=== PATIENT | male | born 1990 | race Caucasian/White ===

== ENCOUNTER 2024-09-09 14:17 | Outpatient (AMB) | payer OTHER, SELFPAY ==
--- NOTE | 2024-09-09 14:20 | MHC.OFFVIS ---
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 Zaragoza, 07/26/24), cervical degenerative disc disease, chronic numbness of both lower extremities and left upper extremity, history of left shoulder pain status post reconstructive surgery about 10 years, anxiety and depression, ADHD, history of alcohol abuse (quit 2018), former tobacco use, presents today for initial evaluation of chronic pain syndrome including neck pain, left upper extremity pain, lower back pain, left leg pain with bilateral numbness and parasthesias in both legs. He also reports widespread body pain with multiple tender points of the upper and lower extremities consistent with fibromyalgia. Denies any recent trauma, injury, or falls. Anterior neck incision is healing well. Patient last seen Dr. Zaragoza for postoperative visit last Monday with no further follow-up. He has not been cleared to return to his work as of yet and was recommended no lifting, no bending or twisting. 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 He sees Psychologist for anxiety and depression and recently underwent business separation with his brother which caused him significant emotional trauma lead to an alcohol abuse. Reports last alcohol and tobacco consumption in 2019. Patient uses recreational marijuana for pain and sleep which he obtains a local dispensary stores. Patient reports recent EMG study at [facility] this month, but not lower extremities. Patient undergone last neck injection prior to cervical surgery at [facility] with no pain relief. Per referral notes, Dr. Zaragoza and Dr. Adame are struggling to explain patient's symptoms based on diagnostic studies. Patient also has Neurology evaluation. Currently he takes gabapentin 600 mg BID and 900 mg at bedtime, duloxetine 40 mg daily, OxyContin 10 mg b.i.d., Percocet 5/325 mg Q4H prn pain tizanidine 4 mg t.i.d. p.r.n. for chronic pain with mild analgesia. Patient admits opioid medication allows him to be more functional and less symptomatic but does not alleviate most of his pain. Pain affects his daily activities and functioning mood, sleep, mobility, social interactions and quality of life. Denies any fever or chills, abdominal or groin pain, bladder or bowel dysfunction or saddle anesthesia. Reports bilateral lower extremity weakness, uses cane with ambulation. Location: Low back, neck, left leg, left upper arm, BLE, hands Duration: Chronic pain >5 months Characteristics of symptom or complaint: Aching, shooting, stabbing, throbbing, numbness, squeezing, cramping, sore Aggravating or associated factors: Any movement, standing, sitting, changing positions, bending, lifting Relieving factors: Laying with head and legs elevated medications, heat therapy Treatment: Xtampza ER, Percocet, tizanidine prn, gabapentin, duloxetine; C6-C7 ACDF [facility] Medical History (Updated 09/09/24 @ 16:09 by CHAZ Guo) Low back pain Chronic pain syndrome Paresthesia of both lower extremities Former tobacco use Alcohol abuse Anxiety and depression ADHD DDD (degenerative disc disease), cervical Surgical History (Updated 09/09/24 @ 16:08 by CHAZ Guo) H/O shoulder surgery S/P cervical spinal fusion (~07/26/24) Social History (Updated 09/09/24 @ 14:30 by Kaylee Mondragon) Patient Tobacco Use Status: Former Tobacco user Substance Use Type: Marijuana Review of Systems Const All systems reviewed & are unremarkable except as noted in HPI and below Neuro Denies Sensory deficit (Neuro) Physical Exam Vital Signs: Last Vital Signs Pulse 144 H 09/09/24 14:26 BP 163/95 H 09/09/24 14:26 Pulse Ox 99 09/09/24 14:26 Oxygen Delivery Method Room Air 09/09/24 14:26 BMI result Body Mass Index 32.5 General: Appears afebrile. Alert and oriented. Mood and affect appropriate. Anxious. Follows and participates in conversation appropriately. Respiratory effort is unlabored. No cough. Able to transition from sit to stand unassisted. Ambulates with bilaterally normal heel strike and toe off. Neck Neck: Yes normal visual inspection, Yes no lymphadenopathy, Yes no meningeal signs, Yes supple, No anterior neck swelling, No torticollis, Yes no JVD and No prominent dorsocervical fat pad General: Yes no CVA tenderness Back/Spine/Pelvis Other: Multiple widespread TTPs bilaterally, including upper and lower extremities consistent with fibromyalgia. Back: no CVA tenderness Cervical Spine: cervical muscular tenderness, pain with cervical ROM, Cervical spine scars present (s/p ACDF 07/26/24 well healing incision), No Cervical spine tenderness and No step off deformity Thoracic/Lumbar Spine: thoracic and lumbar spine normal to inspection, No Thoracic/lumbar spine scar(s), Lasegue's sign negative, straight leg raise negative bilaterally, pain with thoraco-lumbar ROM, paraspinal muscle tenderness, thoraco-lumbar ROM limited, No thoracic spinal tenderness and No lumbar spinal tenderness Pelvis: buttock tenderness bilaterally Sacroiliac joints: bilaterally tender to palpation; not passive hyperextion of lower ext Neuro General: no meningeal signs, CN's II-XI intact bilaterally and deep tendon reflexes 2+ bilaterally Cognition (Neuro): normal cognition Gait exam (Neuro): Antalgic gait present and Assistive device used Motor exam (neuro): 5/5 motor strength present throughout (4/5 LUE), no tremor noted and Motor abnormalities not present Sensory Exam: No Sensory deficit (Neuro) Extrem General: Yes capillary refill normal, Yes no clubbing, cyanosis or edema and Yes no calf tenderness Results Reviewed Results Reviewed: XR SPINE LUMBAR 2 or 3 views 07/02/24 INDICATION: Lumbar radiculopathy. TECHNIQUE: Three views of the lumbar spine. COMPARISON: MRI lumbar spine 06/28/2024. FINDINGS: The alignment is anatomic. Vertebral body height is normal without compression deformity. Visualized disc spaces are unremarkable. IMPRESSION: No acute findings. MR SPINE LUMBAR without CONTRAST 06/28/24 [facility] INDICATION: Weakness in legs, left leg symptoms since injection into neck. Mid and lower back pain. TECHNIQUE: Unenhanced multiplanar, multisequence MR imaging of the lumbar spine. COMPARISON: XR SI joints 05/29/2024. FINDINGS: Normal lumbar alignment is demonstrated. Vertebral heights are well maintained. There is a hemangioma in T12. Bone marrow signal is otherwise within normal limits, and no suspicious osseous lesion is identified. Conus medullaris is unremarkable. Paraspinal soft tissues and visualized portions of the abdomen and pelvis are unremarkable. At T12-L1, there is a small broad-based is bulge. No central canal or neural foraminal stenosis is demonstrated. At L1-2 there is no significant disc herniation or protrusion. No central canal or neural foraminal stenosis is demonstrated. At L2-3 there is no significant disc herniation or protrusion. No central canal or neural foraminal stenosis is demonstrated. At L3-4 there is no significant disc herniation or protrusion. No central canal or neural foraminal stenosis is demonstrated. At L4-5 there is no significant disc herniation or protrusion. No central canal or neural foraminal stenosis is demonstrated. At L5-S1 there is no significant disc herniation or protrusion. No central canal or neural foraminal stenosis is demonstrated. IMPRESSION: Unremarkable lumbar spine MRI. XR SACRO ILIAC JOINTS >3 views 05/29/24 at [facility] INDICATION: Sacroiliitis. Left greater than right joint pain TECHNIQUE: Four views of the SI joints. COMPARISON: None Available. FINDINGS: The visualized SI joint space is bilaterally symmetrical. There is no evidence of lytic or sclerotic process. Bones demonstrate normal mineralization. IMPRESSION: No acute findings. Normal plain film appearance of the SI joints. XR SPINE CERVICAL 4 OR 5 VIEWS 05/15/24 [facility] INDICATION: Radiculopathy, cervical region. Nerve pain, left side of body, especially left arm and hand. Symptoms since early 03/2024. Evaluate for foraminal encroachment. Additional History: Thyroid problems. Former smoker (10+ packs per day). TECHNIQUE: Two bilateral oblique views of the cervical spine. COMPARISON: MRI Spine Cervical 05/11/2024. FINDINGS: The alignment is anatomic. There is no evidence of an acute fracture. Visualized disc spaces are unremarkable. Neural foramina are patent bilaterally. Prevertebral soft tissues are within normal limits. IMPRESSION: Neural foramina appear patent bilaterally. Cervical spine appears intact without evidence of acute fracture or subluxation. MR SPINE CERVICAL without CONTRAST 05/11/24 [facility] INDICATION: Nerve pain in left side of body. Worse in left shoulder, arm and hand. Ongoing since early March 2024. TECHNIQUE: Unenhanced multiplanar, multisequence MR imaging of the cervical spine. COMPARISON: None Available. FINDINGS: Normal cervical alignment is demonstrated. Vertebral heights are well maintained. Craniocervical junction is unremarkable. Mild degenerative changes in the mid to lower cervical spine present. Bone marrow signal is within normal limits, and no suspicious osseous lesion is identified. Prevertebral and paraspinal soft tissues are within normal limits. Visualized portions of the posterior fossa are unremarkable. Cervical cord demonstrates normal course, caliber, and signal characteristics. No epidural fluid collection or hematoma is identified. At C2-3 there is no significant disc herniation or protrusion. No central canal or neural foraminal stenosis is demonstrated. At C3-4 there is mild diffuse disc osteophyte and uncovertebral degenerative change causing moderate bilateral neural foraminal narrowing. There is central canal encroachment with impingement of the ventral cord. No cord signal change seen. At C4-5 there is mild diffuse disc osteophyte and uncovertebral degenerative change causing minimal central canal central encroachment. No cord impingement seen. There is moderate bilateral foraminal narrowing with impingement of the exiting nerve roots bilaterally. At C5-6 there is mild diffuse disc osteophyte and uncovertebral degenerative change causing minimal central canal central encroachment. No cord impingement seen. There is moderate bilateral foraminal narrowing with impingement of the exiting nerve roots bilaterally. At C6-7 there is broad based central disc herniation with left foraminal extension present. This results in mild to moderate central canal stenosis with impingement of the ventral cord. No cord signal change seen. AP central canal diameter 0.8 cm in size. Right neural foramina intact there is moderate left neural foraminal narrowing with impingement of the exiting nerve root. At C7-T1 there is no significant disc herniation or protrusion. No central canal or neural foraminal stenosis is demonstrated. IMPRESSION: Degenerative changes of the cervical spine with multilevel areas of mild to moderate central canal stenosis and moderate to advanced neural foraminal narrowing with associated exiting nerve root impingement. MR SHOULDER WITHOUT CONTRAST LEFT 04/25/24 [facility] INDICATION: Shoulder pain. Tendinitis. Bursitis. TECHNIQUE: Axial PD; sagittal T2; coronal PD, T2, T2 fat-sat. COMPARISON: None. FINDINGS: There is susceptibility artifact at the distal clavicle and there has been resection of the distal clavicle with marked attenuation of the distal clavicle. Assessment of the mid clavicle is limited on this examination. There is not significant bone marrow edema or fluid collection. The acromion is intact. No significant abnormality is identified within the subacromial/subdeltoid bursa. The muscles and tendons of the rotator cuff are intact without atrophy or tear. The long head of the biceps tendon is intact and descends normally within the bicipital groove. No labral tear is detected. Glenohumeral articular cartilage is preserved. No glenohumeral capsular abnormality. Normal visualized proximal humerus. Normal muscle signal is present. No soft tissue mass is identified. IMPRESSION: 1. Intact rotator cuff and glenohumeral articulation. 2. Susceptibility artifact at the distal clavicle with marked attenuation the distal clavicle which is presumably postsurgical. Assessment & Plan Assessment & Plan (1) Chronic pain syndrome: Code(s): G89.4 - Chronic pain syndrome Category: Medical (2) Paresthesia of both lower extremities: Code(s): R20.2 - Paresthesia of skin Category: Medical (3) S/P cervical spinal fusion: Onset Date: ~07/26/24 Comment: Dr. Zaragoza, C6-C7 ACDF Code(s): Z98.1 - Arthrodesis status Category: Surgical (4) Fibromyalgia: Code(s): M79.7 - Fibromyalgia Category: Medical (5) Opiate analgesic contract exists: Code(s): Z79.891 - director long term care (current) use of opiate analgesic Category: Medical (6) Low back pain: Code(s): M54.50 - Low back pain, unspecified Category: Medical Plan Patient's widespread body pain is consistent with fibromyalgia. He is recently s/p C6-C7 ACDF and is recovering well with current activity restrictions and out of work. Discussed management of fibromyalgia with patient. Is a noninflammatory, non-autoimmune central afferent processing disorder leading to a diffuse pain syndrome. Patient follows up regularly with a psychologist for anxiety, depression, and ADHD and is recommended to consider cognitive behavioral therapy for chronic pain syndrome and fibromyalgia. Patient would benefit from increased physical activity, either through formal physical therapy or by joining a gym, as well as daily physical activity in form of swimming, gentle stretching exercises, walking, cycling, and aerobic exercise which are the overall most effective treatments once he is cleared to return to work and exercise. Anni Hale., Ronnie Ward, Rachana Samano, Susana Hurtado, Maryjo Barba, & ?Anni Bond (2017). Effectiveness of Therapeutic Exercise in Fibromyalgia Syndrome: A Systematic Review and [place]-Analysis of Randomized Clinical Trials. [employer], 2017, [id number]. [email or web address] We will order neurodiagnostic studies of bilateral lower extremities to further evaluate paresthesias and numbness. Patient also has pending neurology evaluation. Discussed rotation of gabapentin to Lyrica (pregabalin). Patient will try pregabalin at the equivalent dose to his current use of gabapentin for 1 week while holding gabapentin at that time. If well tolerated, we will continue pregabalin and discontinue gabapentin. We also discussed interventional treatments including neuromodulation such as SCS and ITDD pain pump trials vs implants, peripheral nerve stimulation with Sprint PNS device, radiofrequency ablation and therapeutic versus diagnostic injections. Informational pamphlets provided to patient and his family today. All questions and concerns have been answered and patient agreed with the treatment plan. Follow-up for EMG results/medication review and sooner as needed. Orders: Orders NE nerve conduction velocity Today G89.4 - Chronic pain syndrome, R20.2 - Paresthesia of skin NE electromyogram (EMG) Today G89.4 - Chronic pain syndrome, R20.2 - Paresthesia of skin Medications: New pregabalin 200 mg PO BID 1 week 14 caps 0RF pain G89.4 - Chronic pain syndrome Coding Level of Care Code New Pt Level 4 (87503) Complex EM visit Add On G2211 Diagnoses Chronic pain syndrome G89.4 Paresthesia of both lower extremities R20.2 S/P cervical spinal fusion Z98.1 Fibromyalgia M79.7 Opiate analgesic contract exists Z79.891 Low back pain M54.50
[2024-09-09 14:26] VITALS: BP 163/95; PULSE 144; O2SAT 99; BMI 32.5
== END 2024-09-09 15:18 | disposition home or self-care (01) ==
LOC: HO.PMC 14:17
PROVIDERS: PCP Family Medicine; Referring Provider Family Medicine; Visit Provider Nurse Practitioner Family
DX: G89.4 Chronic pain syndrome (principal); R20.2 Paresthesia of skin; Z98.1 Arthrodesis status; M79.7 Fibromyalgia; Z79.891 Long term (current) use of opiate analgesic; M54.50 Low back pain, unspecified
CPT/HCPCS: 99204; G2211

== ENCOUNTER → 2024-09-09 14:17 | Outpatient (BNVA) | payer OTHER, SELFPAY | PROVIDERS: PCP Family Medicine; Referring Provider Family Medicine; Visit Provider Nurse Practitioner Family ==

== ENCOUNTER 2024-11-01 10:23 | Outpatient (AMB) | payer OTHER, SELFPAY ==
--- NOTE | 2024-11-01 10:25 | A.OFFVIS_ITS ---
Vital Signs 3 11/01/24 10:29 Height 5 ft 9 in Weight 215 lb BMI 31.7 BP 136/98 H Blood Pressure Location Rt brachial Position Sitting Pulse 104 H Pulse Source Pulse Oximeter Pulse Oximetry (%) 97 Oxygen Delivery Method Room Air Intake Visit Reasons: FU on EMG test Intake Note: Pain today 08/22 Data Entry Technician Required: No Accompanied by: Spouse Allergies No Known Allergies Allergy (Verified 11/01/24 10:29) Medication List - Last Reconciled 11/01/24 by CHAZ Guo buspirone 10 mg PO TID dextroamphetamine-amphetamine 10 mg (Adderall) 10 mg PO DAILY duloxetine 40 mg PO DAILY gabapentin 600 mg PO TID levothyroxine 112 mcg PO DAILY oxycodone-acetaminophen 5-325 mg (Percocet) 1 tab PO Q4H PRN tizanidine 4 mg PO TID HPI Comments Details: Patient presents today for follow-up to review recent EMG study results. He continues to endorse widespread body pain and persistent shooting pain on the left side of his body associated with burning, tingling, numbness sensations and sharp pain with sudden movements which in voluntarily per patient reduce significant takes, jolts of pain, flashes and tremors. He finds temporary relief when he is resting and laying in supine position with feet and legs slightly elevated. Neurodiagnostics studies are noted below. Patient is interested to see a Neurologist with Movement Disorder specialty for further evaluation. Denies any recent cough, cold, infection, fever, any significant changes in his medical history, medications or recent hospitalizations. PRIOR: Patient is a pleasant 34-year-old male with recent history C6-C7 ACDF (Dr. Zaragoza, 07/26/24), cervical degenerative disc disease, chronic numbness of both lower extremities and left upper extremity, history of left shoulder pain status post reconstructive surgery about 10 years, anxiety and depression, ADHD, history of alcohol abuse (quit 2019), former tobacco use, presents today for initial evaluation of chronic pain syndrome including neck pain, left upper extremity pain, lower back pain, left leg pain with bilateral numbness and parasthesias in both legs. He also reports widespread body pain with multiple tender points of the upper and lower extremities consistent with fibromyalgia. Denies any recent trauma, injury, or falls. Anterior neck incision is healing well. Patient last seen Dr. Zaragoza for postoperative visit last Monday with no further follow-up. He has not been cleared to return to his work as of yet and was recommended no lifting, no bending or twisting. 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 He sees Psychologist for anxiety and depression and recently underwent business separation with his brother which caused him significant emotional trauma lead to an alcohol abuse. Reports last alcohol and tobacco consumption in 2019. Patient uses recreational marijuana for pain and sleep which he obtains a local dispensary stores. Patient reports recent EMG study at [facility] this month, but not lower extremities. Patient undergone last neck injection prior to cervical surgery at [facility] with no pain relief. Per referral notes, Dr. Zaragoza and Dr. Adame are struggling to explain patient's symptoms based on diagnostic studies. Patient also has Neurology evaluation. Currently he takes gabapentin 600 mg BID and 900 mg at bedtime, duloxetine 40 mg daily, OxyContin 10 mg b.i.d., Percocet 5/325 mg Q4H prn pain tizanidine 4 mg t.i.d. p.r.n. for chronic pain with mild analgesia. Patient admits opioid medication allows him to be more functional and less symptomatic but does not alleviate most of his pain. Pain affects his daily activities and functioning mood, sleep, mobility, social interactions and quality of life. Denies any fever or chills, abdominal or groin pain, bladder or bowel dysfunction or saddle anesthesia. Reports bilateral lower extremity weakness, uses cane with ambulation. Location: Low back, neck, left leg, left upper arm, BLE, hands Duration: Chronic pain >5 months Characteristics of symptom or complaint: Aching, shooting, stabbing, throbbing, numbness, squeezing, cramping, sore Aggravating or associated factors: Any movement, standing, sitting, changing positions, bending, lifting Relieving factors: Laying with head and legs elevated medications, heat therapy Treatment: Xtampza ER, Percocet, tizanidine prn, gabapentin, duloxetine; C6-C7 ACDF [facility] Medical History Low back pain Chronic pain syndrome Paresthesia of both lower extremities Former tobacco use Alcohol abuse Anxiety and depression ADHD DDD (degenerative disc disease), cervical Surgical History H/O shoulder surgery S/P cervical spinal fusion (~07/26/24) Social History Patient Tobacco Use Status: Former Tobacco user Substance Use Type: Marijuana Review of Systems Const All systems reviewed & are unremarkable except as noted in HPI and below Neuro Denies Sensory deficit (Neuro) Physical Exam Vital Signs: Last Vital Signs Pulse 104 H 11/01/24 10:29 BP 136/98 H 11/01/24 10:29 Pulse Ox 97 11/01/24 10:29 Oxygen Delivery Method Room Air 11/01/24 10:29 BMI result Body Mass Index 31.7 General: Appears afebrile. Alert and oriented. Mood and affect appropriate. Anxious. Follows and participates in conversation appropriately. Respiratory effort is unlabored. No cough. Able to transition from sit to stand unassisted. Ambulates with bilaterally normal heel strike and toe off. Const Orientation/consciousness: patient oriented x3 Neck Neck: Yes normal visual inspection, Yes no lymphadenopathy, Yes no meningeal signs, Yes supple, No anterior neck swelling, No torticollis, Yes no JVD and No prominent dorsocervical fat pad General: Yes no CVA tenderness Back/Spine/Pelvis Other: Multiple widespread TTPs 16/16 bilaterally, including upper and lower extremities consistent with fibromyalgia. Back: no CVA tenderness Cervical Spine: cervical muscular tenderness, pain with cervical ROM, Cervical spine scars present (s/p ACDF 07/26/24 well healing incision), No Cervical spine tenderness and No step off deformity Thoracic/Lumbar Spine: thoracic and lumbar spine normal to inspection, No Thoracic/lumbar spine scar(s), Lasegue's sign negative, straight leg raise negative bilaterally, pain with thoraco-lumbar ROM, paraspinal muscle tenderness, thoraco-lumbar ROM limited, No thoracic spinal tenderness and No lumbar spinal tenderness Pelvis: buttock tenderness bilaterally Sacroiliac joints: bilaterally tender to palpation; not passive hyperextion of lower ext Neuro General: patient oriented x3, no meningeal signs, CN's II-XI intact bilaterally and deep tendon reflexes 2+ bilaterally Cranial nerves: Yes CN's II-XII intact bilaterally and Yes Facial sensation intact/muscles of mastication intact Cognition (Neuro): normal cognition Gait exam (Neuro): Antalgic gait present and Assistive device used Motor exam (neuro): 5/5 motor strength present throughout (4/5 LUE), Motor abnormalities not present and Tremors during motor activity present (positional head, LUE and RLE tremors) Sensory Exam: No Sensory deficit (Neuro) Extrem General: Yes capillary refill normal, Yes no clubbing, cyanosis or edema and Yes no calf tenderness Results Reviewed Results Reviewed: XR SPINE LUMBAR 2 or 3 views 07/02/24 INDICATION: Lumbar radiculopathy. TECHNIQUE: Three views of the lumbar spine. COMPARISON: MRI lumbar spine 06/28/2024. FINDINGS: The alignment is anatomic. Vertebral body height is normal without compression deformity. Visualized disc spaces are unremarkable. IMPRESSION: No acute findings. MR SPINE LUMBAR without CONTRAST 06/28/24 [facility] INDICATION: Weakness in legs, left leg symptoms since injection into neck. Mid and lower back pain. TECHNIQUE: Unenhanced multiplanar, multisequence MR imaging of the lumbar spine. COMPARISON: XR SI joints 05/29/2024. FINDINGS: Normal lumbar alignment is demonstrated. Vertebral heights are well maintained. There is a hemangioma in T12. Bone marrow signal is otherwise within normal limits, and no suspicious osseous lesion is identified. Conus medullaris is unremarkable. Paraspinal soft tissues and visualized portions of the abdomen and pelvis are unremarkable. At T12-L1, there is a small broad-based is bulge. No central canal or neural foraminal stenosis is demonstrated. At L1-2 there is no significant disc herniation or protrusion. No central canal or neural foraminal stenosis is demonstrated. At L2-3 there is no significant disc herniation or protrusion. No central canal or neural foraminal stenosis is demonstrated. At L3-4 there is no significant disc herniation or protrusion. No central canal or neural foraminal stenosis is demonstrated. At L4-5 there is no significant disc herniation or protrusion. No central canal or neural foraminal stenosis is demonstrated. At L5-S1 there is no significant disc herniation or protrusion. No central canal or neural foraminal stenosis is demonstrated. IMPRESSION: Unremarkable lumbar spine MRI. XR SACRO ILIAC JOINTS >3 views 05/29/24 at [facility] INDICATION: Sacroiliitis. Left greater than right joint pain TECHNIQUE: Four views of the SI joints. COMPARISON: None Available. FINDINGS: The visualized SI joint space is bilaterally symmetrical. There is no evidence of lytic or sclerotic process. Bones demonstrate normal mineralization. IMPRESSION: No acute findings. Normal plain film appearance of the SI joints. XR SPINE CERVICAL 4 OR 5 VIEWS 05/15/24 [facility] INDICATION: Radiculopathy, cervical region. Nerve pain, left side of body, especially left arm and hand. Symptoms since early 03/2024. Evaluate for foraminal encroachment. Additional History: Thyroid problems. Former smoker (10+ packs per day). TECHNIQUE: Two bilateral oblique views of the cervical spine. COMPARISON: MRI Spine Cervical 05/11/2024. FINDINGS: The alignment is anatomic. There is no evidence of an acute fracture. Visualized disc spaces are unremarkable. Neural foramina are patent bilaterally. Prevertebral soft tissues are within normal limits. IMPRESSION: Neural foramina appear patent bilaterally. Cervical spine appears intact without evidence of acute fracture or subluxation. MR SPINE CERVICAL without CONTRAST 05/11/24 [facility] INDICATION: Nerve pain in left side of body. Worse in left shoulder, arm and hand. Ongoing since early March 2024. TECHNIQUE: Unenhanced multiplanar, multisequence MR imaging of the cervical spine. COMPARISON: None Available. FINDINGS: Normal cervical alignment is demonstrated. Vertebral heights are well maintained. Craniocervical junction is unremarkable. Mild degenerative changes in the mid to lower cervical spine present. Bone marrow signal is within normal limits, and no suspicious osseous lesion is identified. Prevertebral and paraspinal soft tissues are within normal limits. Visualized portions of the posterior fossa are unremarkable. Cervical cord demonstrates normal course, caliber, and signal characteristics. No epidural fluid collection or hematoma is identified. At C2-3 there is no significant disc herniation or protrusion. No central canal or neural foraminal stenosis is demonstrated. At C3-4 there is mild diffuse disc osteophyte and uncovertebral degenerative change causing moderate bilateral neural foraminal narrowing. There is central canal encroachment with impingement of the ventral cord. No cord signal change seen. At C4-5 there is mild diffuse disc osteophyte and uncovertebral degenerative change causing minimal central canal central encroachment. No cord impingement seen. There is moderate bilateral foraminal narrowing with impingement of the exiting nerve roots bilaterally. At C5-6 there is mild diffuse disc osteophyte and uncovertebral degenerative change causing minimal central canal central encroachment. No cord impingement seen. There is moderate bilateral foraminal narrowing with impingement of the exiting nerve roots bilaterally. At C6-7 there is broad based central disc herniation with left foraminal extension present. This results in mild to moderate central canal stenosis with impingement of the ventral cord. No cord signal change seen. AP central canal diameter 0.8 cm in size. Right neural foramina intact there is moderate left neural foraminal narrowing with impingement of the exiting nerve root. At C7-T1 there is no significant disc herniation or protrusion. No central canal or neural foraminal stenosis is demonstrated. IMPRESSION: Degenerative changes of the cervical spine with multilevel areas of mild to moderate central canal stenosis and moderate to advanced neural foraminal narrowing with associated exiting nerve root impingement. MR SHOULDER WITHOUT CONTRAST LEFT 04/25/24 [facility] INDICATION: Shoulder pain. Tendinitis. Bursitis. TECHNIQUE: Axial PD; sagittal T2; coronal PD, T2, T2 fat-sat. COMPARISON: None. FINDINGS: There is susceptibility artifact at the distal clavicle and there has been resection of the distal clavicle with marked attenuation of the distal clavicle. Assessment of the mid clavicle is limited on this examination. There is not significant bone marrow edema or fluid collection. The acromion is intact. No significant abnormality is identified within the subacromial/subdeltoid bursa. The muscles and tendons of the rotator cuff are intact without atrophy or tear. The long head of the biceps tendon is intact and descends normally within the bicipital groove. No labral tear is detected. Glenohumeral articular cartilage is preserved. No glenohumeral capsular abnormality. Normal visualized proximal humerus. Normal muscle signal is present. No soft tissue mass is identified. IMPRESSION: 1. Intact rotator cuff and glenohumeral articulation. 2. Susceptibility artifact at the distal clavicle with marked attenuation the distal clavicle which is presumably postsurgical. Assessment & Plan Assessment & Plan (1) Chronic pain syndrome: Code(s): G89.4 - Chronic pain syndrome Category: Medical (2) Paresthesia of both lower extremities: Code(s): R20.2 - Paresthesia of skin Category: Medical (3) S/P cervical spinal fusion: Onset Date: ~07/26/24 Comment: Dr. Zaragoza, C6-C7 ACDF Code(s): Z98.1 - Arthrodesis status Category: Surgical (4) Fibromyalgia: Code(s): M79.7 - Fibromyalgia Category: Medical (5) Opiate analgesic contract exists: Code(s): Z79.891 - long-term (current) use of opiate analgesic Category: Medical (6) Low back pain: Code(s): M54.50 - Low back pain, unspecified Category: Medical Plan Neurodiagnostic studies were discussed with patient and his family. EMG is grossly normal. Patient continues to widespread body pain and left sided shock like pain. He recently underwent C6-C7 ACDF and is recovering well with current activity restrictions and out of work. We reviewed management of fibromyalgia with patient. Is a noninflammatory, non- autoimmune central afferent processing disorder leading to a diffuse pain syndrome. Patient follows up regularly with a psychologist for anxiety, depression, and ADHD and is recommended to consider cognitive behavioral therapy for chronic pain syndrome and fibromyalgia. Encouraged regular physical activity, swimming, gentle stretching exercises, walking, cycling, and aerobic exercise. Patient has tried pregabalin and reports no improvement in his symptoms. He will continue with gabapentin. Script provided for methocarbamol. Side effects and precautions were discussed with patient. We also discussed interventional treatments including neuromodulation such as SCS trials vs implants, peripheral nerve stimulation with Sprint PNS device, radiofrequency ablation and therapeutic versus diagnostic injections. Patient will undergo Neurology/Movement Disorder evaluation as next steps. All questions and concerns have been answered and patient agreed with the treatment plan. Follow-up after Neurology evaluation and sooner as needed. Orders: Referrals 2 Neurology Referral G25.9 - Extrapyramidal and movement disorder, unspecified, G89.4 - Chronic pain syndrome, R20.2 - Paresthesia of skin, Z98.1 - Arthrodesis status Medications: New 2 methocarbamol 750 mg PO Q8H 30 days PRN 90 tabs 0RF muscle spasm G89.4 - Chronic pain syndrome, M79.7 - Fibromyalgia Coding Level of Care Code Est Pt Level 4 (80665) Complex EM visit Add On G2211 Diagnoses Chronic pain syndrome G89.4 Paresthesia of both lower extremities R20.2 S/P cervical spinal fusion Z98.1 Fibromyalgia M79.7 Opiate analgesic contract exists Z79.891 Low back pain M54.50
[2024-11-01 10:29] VITALS: BP 136/98; PULSE 104; O2SAT 97; BMI 31.7
--- OUTSIDE RECORDS SUMMARY | 2024-11-01 10:44 | XMS_ITS | Continuity of Care Document ---
Author Organization [facility] Address [address], [address], [address] [place] [id number] Care Team Providers Care Shipping Clerk Name Role Phone Jairon Arias DO Primary Care Physician Encounter [facility] Date(s): 09/17/24 - 10/17/24 [facility] [address], [address] [place] [id number] Encounter Type: Triage Allergies, Adverse Reactions, Alerts No Known Allergies Immunizations Given and Recorded Vaccine Date Status Refusal Reason tetanus/diphtheria/pertussis, acel(Tdap) 08/01/13 Given Fluarix (oldterm) 08/01/13 Given influenza virus vaccine, inactivated 1 08/29/12 Gi jana diphtheria-tetanus toxoids (DT) 12/10/02 Given tetanus-diphtheria toxoids (Td) 12/10/02 Given hepatitis B adult vaccine 02/08/02 Given hepatitis B adult vaccine 08/28/01 Given hepatitis B adult vaccine 07/26/01 Given Measles/Mumps/Rubella Virus Vaccine 06/08/99 Given Measles/Mumps/Rubella Virus Vaccine 08/24/89 Given Poliovirus Vaccine, Inactivated 05/20/93 Given Poliovirus Vaccine, Inactivated 11/21/89 Given Poliovirus Vaccine, Inactivated 88 Given Poliovirus Vaccine, Inactivated 88 Given diphtheria/tetanus/pertussis, acel(DTaP) 05/20/93 Given diphtheria/tetanus/pertussis, acel(DTaP) 11/21/89 Given diphtheria/tetanus/pertussis, acel(DTaP) 88 Given diphtheria/tetanus/pertussis, acel(DTaP) 88 Given diphtheria/tetanus/pertussis, acel(DTaP) 88 Given Varicella Virus Vaccine 88 Given 1Admin Note: VIM dated 05/14/12 GIVEN TODAY Medications acetaminophen-oxyCODONE 325 mg-5 mg oral tablet Refills 0, Tot. Refills 0, Maintenance, 08/22/24 1:05:00 PM EDT, Partial fill upon patient request if the prescription is for a schedule II opioid drug. Start Date: 08/22/24 Status: Ordered Repeat number: 1 amphetamine-dextroamphetamine 5 mg oral tablet 0 Refills, Maintenance, 07/02/24 3:37:00 PM EDT, Partial fill upon patient request if the prescription is for a schedule II opioid drug. Start Date: 07/02/24 Status: Ordered Repeat number: 1 busPIRone 10 mg oral tablet 10 mg, 1, tablet, By Mouth, 2 times a day, and as needed for anxiety, per pt., Refills 0, Maintenance, 07/02/24 3:37:00 PM EDT, Partial fill upon patient request if the prescription is for a schedule II opioid drug. Start Date: 07/02/24 Status: Ordered Repeat number: 1 DULoxetine 40 mg oral delayed release capsule 1 capsule = 40 mg, By Mouth, Daily in AM, do not crush or chew, # 30 capsule, 0 Refills, Maintenance, 07/24/24 12:19:00 PM EDT, CR Capsule, Partial fill upon patient request if the prescription is fora schedule II opioid drug. Start Date: 07/24/24 Status: Ordered Quantity: 30.0 Unit: capsule Repeat number: 1 gabapentin 300 mg oral capsule 3 capsules, By Mouth, Every 8 hours, Refills 0, Maintenance, 07/02/24 3:38:00 PM EDT, Partial fill upon patient request if the prescription is for a schedule II opioid drug. Start Date: 07/02/24 Status: Ordered Repeat number: 1 levothyroxine 0.112 mg oral tablet 1 tablet = 112 mcg, By Mouth, Daily in AM, 0 Refills, Maintenance, 07/02/24 3:38:00 PM EDT, Partial fill upon patient request if the prescription is for a schedule II opioid drug. Start Date: 07/02/24 Status: Ordered Repeat number: 1 lidocaine 5% topical ointment See Instructions, apply pea size amount to the anal area 4 times a day for anal pain, # 70 Gm, 6 Refills, Maintenance, 07/02/14 4:02:18 PM EDT Start Date: 07/02/14 Status: Ordered Quantity: 70.0 Unit: g Repeat number: 7 oxyCODONE 10 mg oral tablet 1 tablet = 10 mg, By Mouth, Every 4 hours, PRN as needed for pain, # 42 tablet, 0 Refills, Maintenance, 07/26/24 3:49:00 PM EDT, Tablet, [facility], Partial fill upon patient request if the prescription is for a schedule II opioid drug., 175.26, cm, 07/26/24 10:38:00 EDT, Height, 106, kg, 07/26/24 10:38:00 EDT, Dry Weight Start Date: 07/26/24 Status: Ordered Quantity: 42.0 Unit: tablet Repeat number: 1 sertraline 50 mg oral tablet 1 tablet = 50 mg, By Mouth, Daily, # 30 tablet, 3 Refills, Maintenance, 07/07/15 5:27:37 PM EDT, Tablet, [facility]/pharmacy #[id number], Please add to existing refills Start Date: 07/07/15 Status: Ordered Quantity: 30.0 Unit: tablet Repeat number: 4 tiZANidine 4 mg oral tablet 4 mg, 1, tablet, By Mouth, 3 times a day, PRN, # 90 tablet, Refills 0, Tot. Refills 0, Maintenance,Spasm, 07/26/24 3:48:00 PM EDT, Route to Pharmacy Electronically, [facility], Partial fill upon patient request if the prescription is for a schedule II opioid drug., 175.26, cm, 07/26/24 10:38:00 EDT, Height, 106, kg, 07/26/24 10:38:00 EDT, Dry Weight Start Date: 07/26/24 Status: Ordered Quantity: 90.0 Unit: tablet Repeat number: 1 verapamil 80 mg oral tablet 1 tablet = 80 mg, By Mouth, 2 times a day, # 60 tablet, 5 Refills, Maintenance, 06/03/15 10:31:22 AMEDT, [facility]/pharmacy #[id number] Start Date: 06/03/15 Stop Date: 11/30/15 Status: Ordered Quantity: 60.0 Unit: tablet Repeat number: 6 Problem List Condition Confirmation Course Effective Dates Status Health St atus Informant Acne Confirmed 02/15/12 Active [id number] Confirmed Active Generalized anxiety disorder Confirmed Active Obese class I Confirmed Active Proctalgia fugax Confirmed Active Shoulder pain, left Confirmed Active Social History Social History Type Response Smoking Status Former smoker entered on: 06/02/14 Sex Sex Representation Male (finding) Patient Care team information Care Team Personnel Name: Jairon Arias DO Position: Reference Physician Member Role: PCP Address: [address] [place] [address] Telecom: Care Team Related Persons Name: BISI ROBERT Name: ALBERTO MIGUEL Insurance Providers Guarantor name: ANDREW MIGUEL Health Plan Information #: 1 Payer: [employer] NON HMO PLANS Member Number: NA Policy Number: NA Group Number: NA
--- OUTSIDE RECORDS SUMMARY | 2024-11-01 10:44 | XMS_ITS | Continuity of Care Document ---
Author Organization [facility] Address [address], [address], [address] [place] [address]- Care Team Providers Care Plant Safety Leader Name Role Phone Jairon Arias DO Primary Care Physician Encounter [facility] Date(s): 09/06/24 - 10/06/24 [facility] [address], [address] [place] [id number] Encounter Type: Triage Allergies, Adverse Reactions, Alerts [...] Refills, Maintenance, 07/26/24 3:49:00 PM EDT, Tablet, [facility] 3, Partial fill upon patient request if [...] Refills, Maintenance, 07/07/15 5:27:37 PM EDT, Tablet, [facility]/pharmacy #[id number], Please add to existing refills Start Date: 07/07/15 Status: Ordered Quantity: 30.0 Unit: tablet Repeat number: 4 tiZANidine 4 mg oral tablet 4 mg, 1, tablet, By Mouth, 3 times a day, PRN, # 90 tablet, Refills 0, Tot. 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 Shoulder pain, left Confirmed Active Social History Social History Type Response Smoking Status Former smoker entered on: 06/02/14 Sex Sex Representation Male (finding) Patient Care team information Care Team Personnel Name: Jairon Arias DO Position: Reference Physician Member Role: PCP Address: [address] [place], [place] [id number] Telecom: Care Team Related Persons Name: BISI ROBERT Name: ALBERTO MIGUEL Insurance Providers Guarantor name: ANDREW MIGUEL Health Plan Information #: 1 Payer: [employer] NON HMO PLANS Member Number: NA Policy Number: NA Group Number: NA
--- OUTSIDE RECORDS SUMMARY | 2024-11-01 10:44 | XMS_ITS | Continuity of Care Document ---
Author Organization [facility] Address [address] [place] [address] [address], [address] [place] [address]- Care Team Providers Care Music Autographer Name Role Phone Jairon Arias DO Primary Care Physician Encounter [facility] Date(s): 09/02/24 - 10/02/[address] [place], [place] [address] Encounter Type: Triage Allergies, Adverse [...] Refills, Maintenance, 07/26/24 3:49:00 PM EDT, Tablet, [facility] 3, Partial fill upon patient request [...] Refills, Maintenance, 07/07/15 5:27:37 PM EDT, Tablet, [facility]/pharmacy #[id number], Please add to existing refills Start Date: 07/07/15 Status: Ordered Quantity: 30.0 Unit: tablet Repeat number: 4 tiZANidine 4 mg oral tablet 4 mg, 1, tablet, By Mouth, 3 times a day, PRN, # 90 tablet, Refills 0, Tot. Refills 0, Maintenance,Spasm, 07/26/24 3:48:00 PM EDT, Route to Pharmacy Electronically, [facility] 3, Partial fill upon patient request [...] tablet, 5 Refills, Maintenance, 06/03/15 10:31:22 AMEDT, [facility]/pharmacy #[id number] Start Date: 06/03/15 Stop Date: 11/30/15 Status: Ordered Quantity: 60.0 Unit: tablet Repeat number: 6 Problem List Condition Confirmation Course Effective Dates Status Health St atus Informant Acne Confirmed 02/15/12 Active Fdzjyjq-oy-rem Confirmed Active Generalized anxiety disorder Confirmed Active Obese class I Confirmed Active Proctalgia fugax Confirmed Active Shoulder pain, left Confirmed Active Social History Social History Type Response Smoking Status Former smoker entered on: 06/02/14 Sex Sex Representation Male (finding) Patient Care team information Care Team Personnel Name: Jairon Arias DO Position: Reference Physician Member Role: PCP Address: [address] [place], [place] [id number] Telecom: Care Team Related Persons Name: BISI ROBERT Name: ALBERTO MIGUEL Insurance Providers Guarantor name: ANDREW MIGUEL Health Plan Information #: 1 Payer: [employer] NON HMO PLANS Member Number: NA Policy Number: NA Group Number: NA
== END 2024-11-01 11:01 | disposition home or self-care (01) ==
PROVIDERS: PCP Family Medicine; Visit Provider Nurse Practitioner Family
DX: G89.4 Chronic pain syndrome (principal); R20.2 Paresthesia of skin; Z98.1 Arthrodesis status; M79.7 Fibromyalgia; Z79.891 Long term (current) use of opiate analgesic; M54.50 Low back pain, unspecified
CPT/HCPCS: 99214; G2211